=== PATIENT | male | born 1960 | race Caucasian/White ===

== ENCOUNTER 2016-09-20 19:20 | Emergency (ER) | payer OTHER ==
[~2016-09-20 19:20] MED LIST: ASPIRIN LOW STR81 MG PO; ASPIRIN325 MG PO; HYDROCHLOROTHIA25 MG PO; METOPROLOL TART25 MG PO; MOBIC15 M2 PO; NITROGLYCERIN0.4 MG SL; NO HOME MEDICATION XX; PRAVACHOL40 MG PO; TRAMADOL HCL50 M2 PO; ULTRAM50 M1 PO; ZOCOR20 MG PO
[2016-09-20] MEDS ORDERED: MOBIC7.5 M2 PO (19:47)
[2016-09-20] MEDS ORDERED: ULTRAM50 M1 PO (19:47)
[2016-09-20] MEDS ORDERED: LISINOPRIL40 M1 PO (19:47)
[2016-09-20] MEDS ORDERED: TRAMADOL HCL50 M2 PO (19:57)
== END 2016-09-20 20:24 ==
LOC: EDMED 19:20
DX: M25.562 Pain in left knee (principal); M25.561 Pain in right knee; G89.29 Other chronic pain; F17.210 Nicotine dependence, cigarettes, uncomplicated

== ENCOUNTER 2016-12-05 03:16 | Emergency (ER) | payer OTHER ==
[~2016-12-05 03:16] MED LIST changes: +LISINOPRIL40 M1 PO; +MOBIC7.5 M2 PO
[2016-12-05] MEDS ORDERED: PENICILLIN V P500 M1 PO ×2 (03:39→04:19)
[2016-12-05] MEDS ORDERED: ULTRAM50 M1 PO ×2 (03:39→04:01)
== END 2016-12-05 04:31 ==
LOC: EDMED 03:16
DX: K04.7 Periapical abscess without sinus (principal); I25.2 Old myocardial infarction; I10 Essential (primary) hypertension; F17.210 Nicotine dependence, cigarettes, uncomplicated; Z79.899 Other long term (current) drug therapy